=== PATIENT | male | born 1945 | race Caucasian/White ===

== ENCOUNTER → 2017-09-24 | Outpatient (CLI) | payer MEDICARE, BC ==
[~2017-09-24] MED LIST: ALBU90OI6; ALBU90OI61 INH; ASPI81CH PO; ATOR20 PO; ATOR80 PO; B Complex #11 EACH PO; BUDE6HFA; BUME2 PO; CEPH500 PO; CLOP75 PO; ENTRESTO 97 MG1 EACH PO; FISH OIL 1,0001 EAC1 PO; Fish Oil 10001000 MG PO; GABA300 PO; GLUC500 PO; LOSA25 PO; MAGOXI400 PO; MELA3 PO; MELADOX3 MG PO; MOVE FREE JOIN1 EACH PO; MULTI-DAY PLUS1 EAC1 PO; Metoprolol Succ25 MG PO; NITR.4SL SL; OLME20; OLME20-12.; Omeprazole20 M1 PO; POTA10T PO; POTCHL10ER PO; ROSU10TA; SPIR25 PO; Saw Palmetto160 MG PO; Super B Comple150 MG PO; TIOT18; TORSE20 PO; UBID100 PO; XARELTO15 MG
== END ==
LOC: LAB SHORT 15:16
DX: J02.9 Acute pharyngitis, unspecified (principal)
CPT/HCPCS: 87070

== ENCOUNTER 2017-10-30 14:16 | Emergency (ER) | payer MEDICARE, BC ==
[~2017-10-30] VITALS: Ht 193 cm; Wt 98.0 kg
[~2017-10-30 14:16] MED LIST changes: -B Complex #11 EACH PO; -BUME2 PO; -CEPH500 PO; -ENTRESTO 97 MG1 EACH PO; -Fish Oil 10001000 MG PO; -MELA3 PO; -MELADOX3 MG PO; -MOVE FREE JOIN1 EACH PO; -NITR.4SL SL; -POTA10T PO; -POTCHL10ER PO; -XARELTO15 MG
[2017-10-30 14:55] LABS: Hematocrit 35.3 % (37.0-53.0); Hemoglobin 11.9 g/dL (13.5-17.5); Mean Corpuscular HGB 30.4 pg (26.0-34.0); Mean Corpuscular HGB Conc 33.7 g/dL (31.5-36.5); Mean Corpuscular Volume 90 fL (80-100); Mean Platelet Volume 9.5 fL (9.1-12.4); Platelet Count 201 K/mm3 (150-400); RDW Coefficient Variation 15.7 % (11.7-14.2); RDW Standard Deviation 51.4 fL (35.1-46.3); Red Blood Cell Count 3.92 M/mm3 (4.30-5.90); White Blood Cell Count 5.63 K/mm3 (4.00-11.30)
[2017-10-30 15:05] LABS: Anion Gap 9 mmol/L (6-16); Blood Urea Nitrogen 25 mg/dL (8-24); Bun/Creatinine Ratio 22.3 (12.0-20.0); CO2, Blood 25 mmol/L (21-32); Calcium, Blood 8.8 mg/dL (8.5-10.1); Chloride, Blood 105 mmol/L (98-108); Creatinine, Blood 1.12 mg/dL (0.60-1.20); Glomerular Filtration Rate >60 (60-); Glucose, Blood 110 mg/dL (70-99); Potassium, Blood 3.9 mmol/L (3.5-5.5); Sodium, Blood 139 mmol/L (136-145)
[2017-10-30 15:12] LABS: International Normalized Ratio 1.14; Prothrombin Time Results 11.9 Sec (9.7-11.5)
[2017-11-09] MEDS ORDERED: SPIR25 PO (13:50)
[2017-11-09] MEDS ORDERED: Fish Oil 10001000 MG PO (13:51)
[2017-11-09] MEDS ORDERED: MELADOX3 MG PO (13:53)
[2017-11-09] MEDS ORDERED: MELA3 PO (13:54)
[2018-02-10] MEDS ORDERED: ATOR20 PO (14:59)
[2018-02-10] MEDS ORDERED: SPIR25 PO (15:00)
[2018-02-10] MEDS ORDERED: MAGOXI400 PO (15:01)
[2018-02-10] MEDS ORDERED: B Complex #11 EACH PO (15:01)
[2018-02-10] MEDS ORDERED: Saw Palmetto160 MG PO (15:02)
[2018-02-10] MEDS ORDERED: ENTRESTO 97 MG1 EACH PO (15:03)
[2018-02-23] MEDS ORDERED: NITR.4SL SL (00:36)
[2018-03-11] MEDS ORDERED: POTA10T PO (13:01)
[2018-03-11] MEDS ORDERED: MAGOXI400 PO (13:05)
[2018-03-11] MEDS ORDERED: Saw Palmetto160 MG PO (13:06)
[2018-03-11] MEDS ORDERED: MOVE FREE JOIN1 EACH PO ×2 (13:07→13:08)
== END 2017-10-30 15:56 | disposition home or self-care (01) ==
LOC: ER 14:16
PROVIDERS: Emergency Medicine
DX: I77.1 Stricture of artery (principal); I11.0 Hypertensive heart disease with heart failure; I50.9 Heart failure, unspecified; I25.10 Atherosclerotic heart disease of native coronary artery without angina pectoris; E78.5 Hyperlipidemia, unspecified; J44.9 Chronic obstructive pulmonary disease, unspecified; Z87.891 Personal history of nicotine dependence
CPT/HCPCS: 36415; 80048; 85027; 85610; 85730; 93926; 99283; J1644; J7040

== ENCOUNTER 2017-11-01 23:47 | Emergency (ER) | payer MEDICARE, BC ==
[~2017-11-01] VITALS: Ht 193 cm; Wt 90.7 kg
[2017-11-02] MEDS ORDERED: CEPH500 PO (04:25)
[2017-11-09] MEDS ORDERED: SPIR25 PO (13:50)
[2017-11-09] MEDS ORDERED: Fish Oil 10001000 MG PO (13:51)
[2017-11-09] MEDS ORDERED: MELADOX3 MG PO (13:53)
[2017-11-09] MEDS ORDERED: MELA3 PO (13:54)
[2018-02-10] MEDS ORDERED: ATOR20 PO (14:59)
[2018-02-10] MEDS ORDERED: SPIR25 PO (15:00)
[2018-02-10] MEDS ORDERED: B Complex #11 EACH PO (15:01)
[2018-02-10] MEDS ORDERED: MAGOXI400 PO (15:01)
[2018-02-10] MEDS ORDERED: Saw Palmetto160 MG PO (15:02)
[2018-02-10] MEDS ORDERED: ENTRESTO 97 MG1 EACH PO (15:03)
[2018-02-23] MEDS ORDERED: NITR.4SL SL (00:36)
[2018-03-11] MEDS ORDERED: POTA10T PO (13:01)
[2018-03-11] MEDS ORDERED: MAGOXI400 PO (13:05)
[2018-03-11] MEDS ORDERED: Saw Palmetto160 MG PO (13:06)
[2018-03-11] MEDS ORDERED: MOVE FREE JOIN1 EACH PO ×2 (13:07→13:08)
== END 2017-11-02 04:37 | disposition home or self-care (01) ==
LOC: ER 23:47
DX: M79.641 Pain in right hand (principal); Z88.2 Allergy status to sulfonamides; Z79.899 Other long term (current) drug therapy; Z79.82 Long term (current) use of aspirin; Z79.2 Long term (current) use of antibiotics; I10 Essential (primary) hypertension; Z87.891 Personal history of nicotine dependence
CPT/HCPCS: 93931; 99284

== ENCOUNTER 2017-11-10 02:19 | Day surgery (SDC) | payer MEDICARE, BC ==
[~2017-11-10] VITALS: Ht 193 cm; Wt 98.2 kg
[~2017-11-10 02:19] MED LIST changes: +CEPH500 PO; +Fish Oil 10001000 MG PO; +MELA3 PO; +MELADOX3 MG PO
[2017-11-10] MEDS ORDERED: BUME2 PO (06:50)
[2017-11-10] MEDS ORDERED: POTCHL10ER PO (06:51)
[2018-02-10] MEDS ORDERED: ATOR20 PO (14:59)
[2018-02-10] MEDS ORDERED: SPIR25 PO (15:00)
[2018-02-10] MEDS ORDERED: MAGOXI400 PO (15:01)
[2018-02-10] MEDS ORDERED: B Complex #11 EACH PO (15:01)
[2018-02-10] MEDS ORDERED: Saw Palmetto160 MG PO (15:02)
[2018-02-10] MEDS ORDERED: ENTRESTO 97 MG1 EACH PO (15:03)
[2018-02-23] MEDS ORDERED: NITR.4SL SL (00:36)
[2018-03-11] MEDS ORDERED: POTA10T PO (13:01)
[2018-03-11] MEDS ORDERED: MAGOXI400 PO (13:05)
[2018-03-11] MEDS ORDERED: Saw Palmetto160 MG PO (13:06)
[2018-03-11] MEDS ORDERED: MOVE FREE JOIN1 EACH PO ×2 (13:07→13:08)
== END 2017-11-10 15:45 | disposition home or self-care (01) ==
LOC: MHTC 02:19
PROC: 047N3Z1 Dilation of Left Popliteal Artery using Drug-Coated Balloon, Percutaneous Approach (ICD-10-PCS; principal; 2017-11-10)
PROC: 04CN3ZZ Extirpation of Matter from Left Popliteal Artery, Percutaneous Approach (ICD-10-PCS; principal; 2017-11-10)
DX: I70.212 Atherosclerosis of native arteries of extremities with intermittent claudication, left leg (principal); I70.92 Chronic total occlusion of artery of the extremities; I34.0 Nonrheumatic mitral (valve) insufficiency; I10 Essential (primary) hypertension; E78.00 Pure hypercholesterolemia, unspecified; E66.01 Morbid (severe) obesity due to excess calories; J44.9 Chronic obstructive pulmonary disease, unspecified
CPT/HCPCS: 37186; 37225; 75625; 75710; 75774; 85347; 99152; 99153; C1724; C1725; C1757; C1769; C1884; C1887; C1894; C2623; J1644; J2250; J2720; J3010; J7030; J7040; Q9967

== ENCOUNTER 2018-02-11 07:39 | Day surgery (SDC) | payer MEDICARE, BC ==
[~2018-02-11] VITALS: Wt 97.0 kg
[~2018-02-11 07:39] MED LIST changes: +B Complex #11 EACH PO; +BUME2 PO; +ENTRESTO 97 MG1 EACH PO; +POTCHL10ER PO
[2018-02-11] MEDS ORDERED: XARELTO15 MG (11:19)
== END 2018-02-11 16:40 | disposition home or self-care (01) ==
LOC: MHTC 07:39
PROC: 047N3Z1 Dilation of Left Popliteal Artery using Drug-Coated Balloon, Percutaneous Approach (ICD-10-PCS; principal; 2018-02-11)
PROC: 04CN3ZZ Extirpation of Matter from Left Popliteal Artery, Percutaneous Approach (ICD-10-PCS; principal; 2018-02-11)
DX: I70.212 Atherosclerosis of native arteries of extremities with intermittent claudication, left leg (principal); I10 Essential (primary) hypertension; E78.00 Pure hypercholesterolemia, unspecified; I25.10 Atherosclerotic heart disease of native coronary artery without angina pectoris; Z95.1 Presence of aortocoronary bypass graft; E66.01 Morbid (severe) obesity due to excess calories; Z87.891 Personal history of nicotine dependence; I25.5 Ischemic cardiomyopathy; I34.0 Nonrheumatic mitral (valve) insufficiency; E78.5 Hyperlipidemia, unspecified
CPT/HCPCS: 37225; 75710; 75774; 85347; 99152; 99153; C1714; C1725; C1769; C1884; C1887; C2623; J1644; J2250; J2720; J3010; J7030; J7040; Q9967

== ENCOUNTER 2018-02-22 20:34 | Observation (INO) | END 2018-02-24 10:37 | disposition home or self-care (01) ==

== ENCOUNTER 2018-03-14 06:00 | Day surgery (SDC) | payer MEDICARE, BC ==
[~2018-03-14] VITALS: Ht 193 cm; Wt 96.0 kg
[~2018-03-14 06:00] MED LIST changes: +MOVE FREE JOIN1 EACH PO; +NITR.4SL SL; +POTA10T PO; +XARELTO15 MG
== END 2018-03-14 16:00 | disposition home or self-care (01) ==
LOC: MHTC 06:00
PROC: 04CN3ZZ Extirpation of Matter from Left Popliteal Artery, Percutaneous Approach (ICD-10-PCS; principal; 2018-03-14)
PROC: 047N3EZ Dilation of Left Popliteal Artery with Two Intraluminal Devices, Percutaneous Approach (ICD-10-PCS; principal; 2018-03-14)
DX: I70.212 Atherosclerosis of native arteries of extremities with intermittent claudication, left leg (principal); I70.92 Chronic total occlusion of artery of the extremities; I10 Essential (primary) hypertension; E78.00 Pure hypercholesterolemia, unspecified; J44.9 Chronic obstructive pulmonary disease, unspecified; E66.9 Obesity, unspecified; Z87.891 Personal history of nicotine dependence
CPT/HCPCS: 37227; 75710; 75774; 85347; 99152; 99153; C1725; C1769; C1876; C1884; C1885; C1887; C2623; J1644; J2250; J2720; J3010; J7030; J7040; Q9967

== ENCOUNTER → 2019-04-30 | Outpatient (CLI) | payer MEDICARE, BC ==
[~2019-04-30] MED LIST changes: +Aspirin EC81 MG PO; +Bumetanide1 MG PO; +Gabapentin600 MG PO; +Lipitor20 MG PO; +METO50ER PO; +OMEP20ER PO; +PROAIR RESPICL90 MCG INH; +TIOT18 INH; +XARELTO2.5 MG PO
[2019-05-02 13:56] LABS: Stool Occult Bld Immuno 1 Negative (NEGATIVE); Stool Occult Bld Immuno 2 Negative (NEGATIVE)
== END | disposition home or self-care (01) ==
LOC: LAB SHORT 09:00 → LAB SRC 09:00
PROVIDERS: Internal Medicine Gastroenterology
DX: Z12.11 Encounter for screening for malignant neoplasm of colon (principal)
CPT/HCPCS: G0328

== ENCOUNTER 2019-05-10 11:38 | Day surgery (SDC) | payer MEDICARE, BC ==
[~2019-05-10] VITALS: Ht 193 cm; Wt 214.8 kg
[2019-05-10] MEDS ORDERED: BUDE6HFA (12:14)
--- NOTE | 2019-05-10 13:56 | NUR ---
05/10/19 1356 Juany Self LATE ENTRY: FLUIDS WERE GIVEN UNTILL BLOOD PRESSURE RETURNED TO BASELINE PER ANESTHESIA.
== END 2019-05-10 13:56 | disposition home or self-care (01) ==
LOC: ORSCSDS 11:38
PROVIDERS: Internal Medicine Gastroenterology
PROC: 0DB68ZX Excision of Stomach, Via Natural or Artificial Opening Endoscopic, Diagnostic (ICD-10-PCS; principal; 2019-05-10 13:00)
PROC: 0DB58ZX Excision of Esophagus, Via Natural or Artificial Opening Endoscopic, Diagnostic (ICD-10-PCS; principal; 2019-05-10 13:00)
DX: K22.70 Barrett's esophagus without dysplasia (principal); K22.2 Esophageal obstruction; K44.9 Diaphragmatic hernia without obstruction or gangrene; I10 Essential (primary) hypertension; Z79.899 Other long term (current) drug therapy; Z79.01 Long term (current) use of anticoagulants; Z79.82 Long term (current) use of aspirin
CPT/HCPCS: 87081; 88305; 88342; J2704; J7120

== ENCOUNTER → 2019-07-21 | Outpatient (CLI) | payer MEDICARE, BC | END | disposition home or self-care (01) | LOC: LAB EV 10:20 → LAB SHORT 10:20 | DX: L03.116 Cellulitis of left lower limb (principal) | CPT/HCPCS: 87070; 87075; 87205 ==

== ENCOUNTER 2019-07-27 09:48 | Day surgery (SDC) | payer MEDICARE, BC ==
[~2019-07-27] VITALS: Ht 193 cm; Wt 100.0 kg
[~2019-07-27 09:48] MED LIST changes: +BUDE6HFA INH; +POTCHL20ER PO
[2019-07-27] MEDS ORDERED: DOXY100 PO (11:26)
[2019-07-27] MEDS ORDERED: CEFD300 PO (11:26)
--- NOTE | 2019-07-27 14:20 | NUR ---
PT BACK TO RECOVERY ROOM POST PROCEDURE. DROWSY, BUT EASILY ROUSEABLE. DENIES ANY PAIN OR DISCOMFORT. VSS. RIGHT GROIN SITE SOFT AND NON-TENDER. DRESSING C/D/I. CALL LIGHT IN REACH
--- NOTE | 2019-07-27 15:03 | NUR ---
PT SLEEPING, RESP EVEN AND NON-LABORED. VSS. AT BEDSIDE, CALL LIGHT IN REACH.
--- NOTE | 2019-07-27 15:41 | NUR ---
DR FENTON AT BEDSIDE SPEAKING WITH PT AND SPOUSE.
--- NOTE | 2019-07-27 17:00 | NUR ---
IV DC'D, CATH INTACT. PT AND SPOUSE VERBALIZED UNDERSTANDING OF DC INSTRUCTIONS AND FOLLOW UP. RIGHT GROIN SITE SOFT, NON-TENDER. NO BLEEDING OR SWELLING NOTED. PT ABLE TO AMBULATE AROUND THE DEPT WITHOUT DIFFICULTY. OUT TO CAR VIA WC.
== END 2019-07-27 23:22 | disposition home or self-care (01) ==
LOC: MHTC 09:48
DX: I70.212 Atherosclerosis of native arteries of extremities with intermittent claudication, left leg (principal); T82.868A Thrombosis due to vascular prosthetic devices, implants and grafts, initial encounter; Y83.1 Surgical operation with implant of artificial internal device as the cause of abnormal reaction of the patient, or of later complication, without mention of misadventure at the time of the procedure; J44.9 Chronic obstructive pulmonary disease, unspecified; E78.00 Pure hypercholesterolemia, unspecified; I25.5 Ischemic cardiomyopathy; E66.9 Obesity, unspecified; G47.30 Sleep apnea, unspecified; K21.9 Gastro-esophageal reflux disease without esophagitis; Z88.2 Allergy status to sulfonamides; Z87.891 Personal history of nicotine dependence; Z79.01 Long term (current) use of anticoagulants; Z79.02 Long term (current) use of antithrombotics/antiplatelets; Z79.899 Other long term (current) drug therapy; Z79.82 Long term (current) use of aspirin; Z68.26 Body mass index [BMI] 26.0-26.9, adult; Z95.1 Presence of aortocoronary bypass graft
CPT/HCPCS: 37184; 37224; 75630; 75774; 99152; 99153; C1725; C1757; C1760; C1769; C1887; C1894; J1644; J2250; J2997; J3010; J7030; Q9967

== ENCOUNTER 2019-08-14 00:30 | Day surgery (SDC) | payer MEDICARE, BC ==
[~2019-08-14 00:30] MED LIST changes: +CEFD300 PO; +DOXY100 PO
== END 2019-08-14 22:53 | disposition home or self-care (01) ==
LOC: WOUND 00:30
DX: L97.522 Non-pressure chronic ulcer of other part of left foot with fat layer exposed (principal); I11.0 Hypertensive heart disease with heart failure; I50.42 Chronic combined systolic (congestive) and diastolic (congestive) heart failure; J44.9 Chronic obstructive pulmonary disease, unspecified; R73.03 Prediabetes; I73.9 Peripheral vascular disease, unspecified; I25.2 Old myocardial infarction; E78.5 Hyperlipidemia, unspecified; M19.90 Unspecified osteoarthritis, unspecified site; G47.30 Sleep apnea, unspecified; I25.10 Atherosclerotic heart disease of native coronary artery without angina pectoris; Z95.5 Presence of coronary angioplasty implant and graft; Z99.89 Dependence on other enabling machines and devices; Z88.2 Allergy status to sulfonamides; Z79.82 Long term (current) use of aspirin; Z79.899 Other long term (current) drug therapy
CPT/HCPCS: G0463

== ENCOUNTER 2019-08-16 00:21 | Day surgery (SDC) | payer MEDICARE, BC | END 2019-08-16 22:37 | disposition home or self-care (01) | LOC: WOUND 00:21 | DX: L97.522 Non-pressure chronic ulcer of other part of left foot with fat layer exposed (principal); I73.9 Peripheral vascular disease, unspecified; E78.5 Hyperlipidemia, unspecified; I11.0 Hypertensive heart disease with heart failure; I25.2 Old myocardial infarction; I50.42 Chronic combined systolic (congestive) and diastolic (congestive) heart failure; J44.9 Chronic obstructive pulmonary disease, unspecified; G47.30 Sleep apnea, unspecified; R73.03 Prediabetes; Z95.5 Presence of coronary angioplasty implant and graft; Z79.899 Other long term (current) drug therapy; Z79.01 Long term (current) use of anticoagulants; Z79.82 Long term (current) use of aspirin | CPT/HCPCS: Q4196 ==

== ENCOUNTER 2019-08-23 00:15 | Day surgery (SDC) | payer MEDICARE, BC | END 2019-08-23 22:43 | disposition home or self-care (01) | LOC: WOUND 00:15 | DX: L97.522 Non-pressure chronic ulcer of other part of left foot with fat layer exposed (principal); J44.9 Chronic obstructive pulmonary disease, unspecified; G47.30 Sleep apnea, unspecified; I11.0 Hypertensive heart disease with heart failure; I50.42 Chronic combined systolic (congestive) and diastolic (congestive) heart failure; E78.5 Hyperlipidemia, unspecified; I25.2 Old myocardial infarction; I25.10 Atherosclerotic heart disease of native coronary artery without angina pectoris; Z95.5 Presence of coronary angioplasty implant and graft; Z99.89 Dependence on other enabling machines and devices; Z79.02 Long term (current) use of antithrombotics/antiplatelets; Z79.899 Other long term (current) drug therapy | CPT/HCPCS: Q4196 ==

== ENCOUNTER 2019-08-31 12:32 | Day surgery (SDC) | payer MEDICARE, BC | END 2019-08-31 23:05 | disposition home or self-care (01) | LOC: WOUND 12:32 | DX: L97.522 Non-pressure chronic ulcer of other part of left foot with fat layer exposed (principal); I73.9 Peripheral vascular disease, unspecified; I25.2 Old myocardial infarction; I11.0 Hypertensive heart disease with heart failure; I50.42 Chronic combined systolic (congestive) and diastolic (congestive) heart failure; E78.5 Hyperlipidemia, unspecified; J44.9 Chronic obstructive pulmonary disease, unspecified; G47.30 Sleep apnea, unspecified; I25.10 Atherosclerotic heart disease of native coronary artery without angina pectoris; R73.03 Prediabetes; Z95.5 Presence of coronary angioplasty implant and graft; Z99.89 Dependence on other enabling machines and devices; Z79.02 Long term (current) use of antithrombotics/antiplatelets; Z79.899 Other long term (current) drug therapy; Z79.01 Long term (current) use of anticoagulants; Z79.82 Long term (current) use of aspirin ==

== ENCOUNTER 2019-09-07 14:06 | Day surgery (SDC) | payer MEDICARE, BC | END 2019-09-07 22:50 | disposition home or self-care (01) | LOC: WOUND 14:06 | DX: I96 Gangrene, not elsewhere classified (principal); L97.522 Non-pressure chronic ulcer of other part of left foot with fat layer exposed; S91.302A Unspecified open wound, left foot, initial encounter; R73.03 Prediabetes; E78.5 Hyperlipidemia, unspecified; I25.2 Old myocardial infarction; I25.10 Atherosclerotic heart disease of native coronary artery without angina pectoris; I11.0 Hypertensive heart disease with heart failure; I50.42 Chronic combined systolic (congestive) and diastolic (congestive) heart failure; M19.90 Unspecified osteoarthritis, unspecified site; G47.30 Sleep apnea, unspecified; J44.9 Chronic obstructive pulmonary disease, unspecified; Z95.1 Presence of aortocoronary bypass graft; Z95.5 Presence of coronary angioplasty implant and graft; Z99.89 Dependence on other enabling machines and devices; Z88.2 Allergy status to sulfonamides; Z79.01 Long term (current) use of anticoagulants; Z79.02 Long term (current) use of antithrombotics/antiplatelets; Z79.82 Long term (current) use of aspirin; Z79.899 Other long term (current) drug therapy; X58.XXXA Exposure to other specified factors, initial encounter | CPT/HCPCS: 87071; 87075; 87205 ==

== ENCOUNTER 2019-09-14 13:59 | Day surgery (SDC) | payer MEDICARE, BC | END 2019-09-14 23:04 | disposition home or self-care (01) | LOC: WOUND 13:59 | DX: L97.522 Non-pressure chronic ulcer of other part of left foot with fat layer exposed (principal); I11.0 Hypertensive heart disease with heart failure; I50.42 Chronic combined systolic (congestive) and diastolic (congestive) heart failure; I25.10 Atherosclerotic heart disease of native coronary artery without angina pectoris; I25.2 Old myocardial infarction; E78.5 Hyperlipidemia, unspecified; J44.9 Chronic obstructive pulmonary disease, unspecified; G47.30 Sleep apnea, unspecified; R73.03 Prediabetes; Z99.89 Dependence on other enabling machines and devices; Z95.5 Presence of coronary angioplasty implant and graft; Z79.02 Long term (current) use of antithrombotics/antiplatelets; Z79.899 Other long term (current) drug therapy; Z79.01 Long term (current) use of anticoagulants; Z79.82 Long term (current) use of aspirin ==

== ENCOUNTER 2019-09-28 00:24 | Day surgery (SDC) | payer MEDICARE, BC | END 2019-09-28 23:08 | disposition home or self-care (01) | LOC: WOUND 00:24 | DX: L97.522 Non-pressure chronic ulcer of other part of left foot with fat layer exposed (principal); E78.5 Hyperlipidemia, unspecified; J44.9 Chronic obstructive pulmonary disease, unspecified; I11.0 Hypertensive heart disease with heart failure; I50.42 Chronic combined systolic (congestive) and diastolic (congestive) heart failure; G47.30 Sleep apnea, unspecified; I25.2 Old myocardial infarction; R73.03 Prediabetes; I25.10 Atherosclerotic heart disease of native coronary artery without angina pectoris; Z95.5 Presence of coronary angioplasty implant and graft; Z99.89 Dependence on other enabling machines and devices; Z79.899 Other long term (current) drug therapy; Z79.02 Long term (current) use of antithrombotics/antiplatelets; Z79.82 Long term (current) use of aspirin ==

== ENCOUNTER 2019-10-05 08:19 | Day surgery (SDC) | payer MEDICARE, BC | END 2019-10-05 23:11 | disposition home or self-care (01) | LOC: WOUND 08:19 | DX: I96 Gangrene, not elsewhere classified (principal); L97.522 Non-pressure chronic ulcer of other part of left foot with fat layer exposed; S91.302A Unspecified open wound, left foot, initial encounter; R73.03 Prediabetes; E78.5 Hyperlipidemia, unspecified; I11.0 Hypertensive heart disease with heart failure; I50.42 Chronic combined systolic (congestive) and diastolic (congestive) heart failure; J44.9 Chronic obstructive pulmonary disease, unspecified; M19.90 Unspecified osteoarthritis, unspecified site; G47.30 Sleep apnea, unspecified; I25.10 Atherosclerotic heart disease of native coronary artery without angina pectoris; I25.2 Old myocardial infarction; Z95.1 Presence of aortocoronary bypass graft; Z95.5 Presence of coronary angioplasty implant and graft; Z88.2 Allergy status to sulfonamides; Z79.01 Long term (current) use of anticoagulants; Z79.02 Long term (current) use of antithrombotics/antiplatelets; Z79.82 Long term (current) use of aspirin; Z79.899 Other long term (current) drug therapy; X58.XXXA Exposure to other specified factors, initial encounter ==

== ENCOUNTER 2019-10-12 00:42 | Day surgery (SDC) | payer MEDICARE, BC | END 2019-10-12 23:20 | disposition home or self-care (01) | LOC: WOUND 00:42 | DX: L97.522 Non-pressure chronic ulcer of other part of left foot with fat layer exposed (principal); I11.0 Hypertensive heart disease with heart failure; I50.42 Chronic combined systolic (congestive) and diastolic (congestive) heart failure; I25.10 Atherosclerotic heart disease of native coronary artery without angina pectoris; I25.2 Old myocardial infarction; J44.9 Chronic obstructive pulmonary disease, unspecified; G47.30 Sleep apnea, unspecified; E78.5 Hyperlipidemia, unspecified; I73.9 Peripheral vascular disease, unspecified; Z95.5 Presence of coronary angioplasty implant and graft; Z99.89 Dependence on other enabling machines and devices; Z79.899 Other long term (current) drug therapy; Z79.01 Long term (current) use of anticoagulants; Z79.02 Long term (current) use of antithrombotics/antiplatelets; Z79.82 Long term (current) use of aspirin; Z79.51 Long term (current) use of inhaled steroids ==

== ENCOUNTER 2019-10-19 00:15 | Day surgery (SDC) | payer MEDICARE, BC | END 2019-10-19 23:02 | disposition home or self-care (01) | LOC: WOUND 00:15 | DX: L97.522 Non-pressure chronic ulcer of other part of left foot with fat layer exposed (principal); I11.0 Hypertensive heart disease with heart failure; I50.42 Chronic combined systolic (congestive) and diastolic (congestive) heart failure; E78.5 Hyperlipidemia, unspecified; I25.2 Old myocardial infarction; I25.10 Atherosclerotic heart disease of native coronary artery without angina pectoris; J44.9 Chronic obstructive pulmonary disease, unspecified; G47.30 Sleep apnea, unspecified; Z95.5 Presence of coronary angioplasty implant and graft; Z99.89 Dependence on other enabling machines and devices; Z79.899 Other long term (current) drug therapy; Z79.02 Long term (current) use of antithrombotics/antiplatelets; Z79.51 Long term (current) use of inhaled steroids ==

== ENCOUNTER 2019-10-26 00:26 | Day surgery (SDC) | payer MEDICARE, BC | END 2019-10-26 23:59 | disposition home or self-care (01) | LOC: WOUND 00:26 | DX: L97.522 Non-pressure chronic ulcer of other part of left foot with fat layer exposed (principal); I73.9 Peripheral vascular disease, unspecified; E78.5 Hyperlipidemia, unspecified; I11.0 Hypertensive heart disease with heart failure; I50.42 Chronic combined systolic (congestive) and diastolic (congestive) heart failure; J44.9 Chronic obstructive pulmonary disease, unspecified; G47.30 Sleep apnea, unspecified; I25.2 Old myocardial infarction; Z95.5 Presence of coronary angioplasty implant and graft; Z79.899 Other long term (current) drug therapy; Z79.02 Long term (current) use of antithrombotics/antiplatelets; Z79.82 Long term (current) use of aspirin | CPT/HCPCS: Q4196 ==

== ENCOUNTER 2019-11-02 02:22 | Day surgery (SDC) | payer MEDICARE, BC | END 2019-11-02 23:06 | disposition home or self-care (01) | LOC: WOUND 02:22 | DX: L97.522 Non-pressure chronic ulcer of other part of left foot with fat layer exposed (principal); I73.9 Peripheral vascular disease, unspecified; I11.0 Hypertensive heart disease with heart failure; I50.42 Chronic combined systolic (congestive) and diastolic (congestive) heart failure; J44.9 Chronic obstructive pulmonary disease, unspecified; I25.2 Old myocardial infarction; E78.5 Hyperlipidemia, unspecified; Z79.899 Other long term (current) drug therapy; Z79.02 Long term (current) use of antithrombotics/antiplatelets | CPT/HCPCS: G0463 ==

== ENCOUNTER 2019-11-09 00:29 | Day surgery (SDC) | payer MEDICARE, BC | END 2019-11-09 23:06 | disposition home or self-care (01) | LOC: WOUND 00:29 | DX: L97.522 Non-pressure chronic ulcer of other part of left foot with fat layer exposed (principal); I73.9 Peripheral vascular disease, unspecified; J44.9 Chronic obstructive pulmonary disease, unspecified; I11.0 Hypertensive heart disease with heart failure; I50.42 Chronic combined systolic (congestive) and diastolic (congestive) heart failure; E78.5 Hyperlipidemia, unspecified; G47.30 Sleep apnea, unspecified; Z99.89 Dependence on other enabling machines and devices; Z79.02 Long term (current) use of antithrombotics/antiplatelets; Z79.899 Other long term (current) drug therapy; Z79.82 Long term (current) use of aspirin | CPT/HCPCS: Q4196 ==

== ENCOUNTER → 2019-11-16 | Day surgery (SDC) | payer MEDICARE, BC | LOC: WOUND 00:14 | DX: L97.522 Non-pressure chronic ulcer of other part of left foot with fat layer exposed (principal); I73.9 Peripheral vascular disease, unspecified; I11.0 Hypertensive heart disease with heart failure; I50.42 Chronic combined systolic (congestive) and diastolic (congestive) heart failure; J44.9 Chronic obstructive pulmonary disease, unspecified; E78.5 Hyperlipidemia, unspecified; Z79.899 Other long term (current) drug therapy; Z79.02 Long term (current) use of antithrombotics/antiplatelets; Z79.82 Long term (current) use of aspirin | CPT/HCPCS: Q4196 ==

== ENCOUNTER 2019-11-23 00:14 | Day surgery (SDC) | payer MEDICARE, BC | END 2019-11-23 23:00 | disposition home or self-care (01) | LOC: WOUND 00:14 | DX: L97.522 Non-pressure chronic ulcer of other part of left foot with fat layer exposed (principal); I73.9 Peripheral vascular disease, unspecified | CPT/HCPCS: Q4196 ==

== ENCOUNTER 2019-11-30 00:33 | Day surgery (SDC) | payer MEDICARE, BC | END 2019-11-30 23:21 | disposition home or self-care (01) | LOC: WOUND 00:33 | DX: L97.522 Non-pressure chronic ulcer of other part of left foot with fat layer exposed (principal); I73.9 Peripheral vascular disease, unspecified; I11.0 Hypertensive heart disease with heart failure; I50.42 Chronic combined systolic (congestive) and diastolic (congestive) heart failure; I25.2 Old myocardial infarction; J44.9 Chronic obstructive pulmonary disease, unspecified; E78.5 Hyperlipidemia, unspecified; Z79.899 Other long term (current) drug therapy; Z79.02 Long term (current) use of antithrombotics/antiplatelets | CPT/HCPCS: G0463 ==

== ENCOUNTER 2020-04-15 08:53 | Day surgery (SDC) | payer MEDICARE, BC ==
[~2020-04-15] VITALS: Ht 193 cm; Wt 97.6 kg
[~2020-04-15 08:53] MED LIST changes: +NITROGLYCERIN0.4 M1 SL
== END 2020-04-15 10:39 | disposition home or self-care (01) ==
LOC: ORSCSDS 08:53
PROVIDERS: Internal Medicine Gastroenterology
PROC: 0DJD8ZZ Inspection of Lower Intestinal Tract, Via Natural or Artificial Opening Endoscopic (ICD-10-PCS; principal; 2020-04-15 10:30)
DX: Z12.11 Encounter for screening for malignant neoplasm of colon (principal); K57.30 Diverticulosis of large intestine without perforation or abscess without bleeding; J44.9 Chronic obstructive pulmonary disease, unspecified; I25.10 Atherosclerotic heart disease of native coronary artery without angina pectoris; Z87.891 Personal history of nicotine dependence; Z79.01 Long term (current) use of anticoagulants; Z79.899 Other long term (current) drug therapy
CPT/HCPCS: J2704; J7120

== ENCOUNTER → 2020-07-10 | Outpatient (CLI) | payer MEDICARE, BC, OTHER ==
[~2020-07-10] MED LIST changes: -BUDE6HFA INH; +FARXIGA5 MG PO; +Percocet 5-3251 EACH PO; +SYMBICORT 160-4.6 GM INH
== END | disposition home or self-care (01) ==
LOC: OLS 11:03 → LAB SHORT 11:03
DX: Z01.812 Encounter for preprocedural laboratory examination (principal); M17.11 Unilateral primary osteoarthritis, right knee; M25.551 Pain in right hip
CPT/HCPCS: 87147

== ENCOUNTER 2020-07-16 06:39 | Day surgery (SDC) | payer MEDICARE, BC, OTHER ==
[~2020-07-16] VITALS: Ht 193 cm; Wt 92.3 kg
[~2020-07-16 06:39] MED LIST changes: -Percocet 5-3251 EACH PO
--- NOTE | 2020-07-16 07:06 | NUR ---
Ambulatory in Day Surgery. Lungs clear T/O to Auscultation. Lungs clear T/O to Auscultation. Patient confirms NPO status and agrees with scheduled surgery.
--- NOTE | 2020-07-16 11:25 | NUR ---
BLADDER SCAN SHOWS 300 ML AND STRAIGHT CATH GISELE WAS 300 ML PT TOLERATED WITHOUT PROBELM DONE PER PROTOCOL
--- NOTE | 2020-07-16 12:45 | NUR ---
CARMELA PT IS MORE BRADYCARDIAC. MANUAL RADIAL PULSE CHECK AT 37. PT AWAKE, PLEASANT, DENIES SOB, CP, PALPTATIONS, OR DIZZINESS. GOOD CIRC CHECKS. TELE ORDERED AND PLACED. AFIB @ 48 PER TELE TECK. PAGE OUT TO MD FOR NEW ORDERS.
--- NOTE | 2020-07-16 14:00 | NUR ---
EKG EKG COMPLETED AND DR INFORMED OF RESULTS. PT CONTINUES TO BE ASYMPTOMATIC.
--- NOTE | 2020-07-16 17:54 | NUR ---
SHIFT SUMMARY PT HAS HAD SOME ISSUES WITH BRADYCARDIA BUT NO SYMPTOMS OR ISSUES. TELE MONITORING CONTINUES. PAIN WELL MANAGED. WORKED WITH THERAPY BUT NOT ABLE TO AMBULATE IN HALLWAYS DUE TO SOME RESIDUAL NUMBNESS R/T SPINAL.
[2020-07-17 04:33] LABS: BASOPHILS ABSOLUTE AUTO 0.04 K/mm3 (0.00-0.23); BASOPHILS PERCENT AUTO 1 % (0-2); EOSINOPHILS ABSOLUTE AUTO 0.21 K/mm3 (0.00-0.68); EOSINOPHILS PERCENT AUTO 3 % (0-6); Hematocrit 36.1 % (37.0-53.0); IMMATURE GRAN ABSOLUTE AUTO 0.03 K/mm3 (0.00-0.10); IMMATURE GRAN PERCENT AUTO 0 % (0-1); LYMPHOCYTES ABSOLUTE AUTO 1.41 K/mm3 (0.84-5.20); LYMPHOCYTES PERCENT AUTO 19 % (21-46); MONOCYTES ABSOLUTE AUTO 0.72 K/mm3 (0.16-1.47); MONOCYTES PERCENT AUTO 10 % (4-13); Mean Corpuscular HGB Conc 33.2 g/dL (31.5-36.5); Mean Corpuscular Volume 96 fL (80-100); Mean Platelet Volume 10.3 fL (9.1-12.4); NEUTROPHILS ABSOLUTE AUTO 5.13 K/mm3 (1.96-9.15); NEUTROPHILS PERCENT AUTO 68 % (41-73); Platelet Count 173 K/mm3 (150-400); RDW Coefficient Variation 12.7 % (11.7-14.2); RDW Standard Deviation 45.7 fL (35.1-46.3); Red Blood Cell Count 3.75 M/mm3 (4.30-5.90); White Blood Cell Count 7.54 K/mm3 (4.00-11.30)
[2020-07-17 04:49] LABS: Anion Gap 3 mmol/L (6-16); Blood Urea Nitrogen 22 mg/dL (8-24); CO2, Blood 29 mmol/L (21-32); Calcium, Blood 8.2 mg/dL (8.5-10.1); Chloride, Blood 109 mmol/L (98-108); Glomerular Filtration Rate >60 (60-); Glucose, Blood 110 mg/dL (70-99); Potassium, Blood 3.3 mmol/L (3.5-5.5); Sodium, Blood 141 mmol/L (136-145)
--- NOTE | 2020-07-17 04:50 | NUR ---
SHIFT SUMMARY: JAM IS A&OX4. HE IS TOLERATING PO INTAKE WELL. VSS, NO ACUTE CHANGES OVERNIGHT. TELE IN PLACE. AQUACELL WITH BRYAN IN PLACE, NO DRAINAGE VISIBLE. HE HAS BEEN ABLE TO PRODUCE MORE URINCE SINCE RECEIVING HIS NIGHTLY BUMEX. NO DRAINAGE VISIBLE TO BRYAN. HE HAS TOLERATED BEING UP AND WALKING WELL, ONE PERSON STANDBY ASSIST. HE IS LYING N BED WITH HIS CALL LIGHT IN REACH. WILL REPORT TO DAY SHIFT RN.
[2020-07-17] MEDS ORDERED: Percocet 5-3251 EACH PO (09:38)
--- NOTE | 2020-07-17 11:55 | NUR ---
DISCHARGE PT EXCITED FOR D/C. ESCORTED OUT VIA W/C AFTER CLEARING THERAPY W/ AT SIDE. PAIN WELL CONTROLLED. EATING, DRINKING, AND VOIDING EASILY. SCRIPT, DRSGS, POLAR PACK AND EXTRA ALBA HOSE SENT. HR UNCHANGED SINCE ARRIVAL TO THIS UNIT.
== END 2020-07-17 11:54 | disposition home or self-care (01) ==
LOC: ORSCMMR 06:39 → ORD 08:15 → SURS 11:35 → ORSCMMR 07-17 11:54 → SURS 07-17 11:54
PROVIDERS: Orthopaedic Surgery
PROC: 0SRC0JA Replacement of Right Knee Joint with Synthetic Substitute, Uncemented, Open Approach (ICD-10-PCS; principal; 2020-07-16 08:15)
PROC: 8E0Y0CZ Robotic Assisted Procedure of Lower Extremity, Open Approach (ICD-10-PCS; principal; 2020-07-16 08:15)
DX: M17.11 Unilateral primary osteoarthritis, right knee (principal); I10 Essential (primary) hypertension; I50.9 Heart failure, unspecified; J44.9 Chronic obstructive pulmonary disease, unspecified; F17.210 Nicotine dependence, cigarettes, uncomplicated; Z79.899 Other long term (current) drug therapy; Z79.01 Long term (current) use of anticoagulants
CPT/HCPCS: 27447; S2900; 36415; 73560-RT; 80048; 85025; 88300; 93005; 93010; 97116; 97162; 97530; A9270; A9270-GY; C1776; J0171; J0690; J0735; J1885; J2250; J2704; J2795; J3010; J7120

== ENCOUNTER 2020-10-15 08:29 | Day surgery (SDC) | payer MEDICARE, BC ==
[~2020-10-15] VITALS: Ht 193 cm; Wt 88.2 kg
[~2020-10-15 08:29] MED LIST changes: -Gabapentin600 MG PO; +Percocet 5-3251 EACH PO
[2020-10-15] MEDS ORDERED: DICLOFENAC SOD2.5 M1 BOTHEYES (09:45)
--- NOTE | 2020-10-15 13:16 | NUR ---
PT TO RECOVERY ROOM VIA BED AFTER PROCEDURE. REPORT FROM JOLENE JORGE. RIGHT GROIN SITE WITH TEGADERM CHG DRESSING. SITE IS SOFT AND NON-TENDER. PT ALERT, ORIENTED. DENIES PAIN OR DISCOMFORT. VSS.
--- NOTE | 2020-10-15 13:53 | NUR ---
PT EATING LUNCH, DENIES PAIN OR NEEDS. VSS, CALL LIGHT IN REACH.
--- NOTE | 2020-10-15 13:53 | NUR ---
PT PROVIDED WITH MEAL TRAY, TOLERATES PO FLUIDS/FOOD WITH NO DIFFICULTIES. RIGHT GROIN SITE STABLE, CLEAR TEGADERM INTACT, SOFT NON TENDER WITH NO BLEEDING OR OOZING NOTED. CALL LIGHT IN REACH. UPDATED ON STATUS PER PT REQUEST.
--- NOTE | 2020-10-15 15:18 | NUR ---
PT SLEEPING, RESP EVEN AND NON-LABORED. VSS, CALL LIGHT IN REACH. RIGHT GROIN SITE SOFT AND NON-TENDER. NO SWELLING OR BLEEDING NOTED.
--- NOTE | 2020-10-15 16:30 | NUR ---
IV DC'D, CATH INTACT. PT GIVEN DC INSTRUCTIONS, VERBALIZED UNDERSTANDING. RIGHT GROIN SITE SOFT AND NON-TENDER. NO BLEEDING OR SWELLING NOTED. VSS AT TIME OF DISCHARGE. OUT TO CAR VIA WHEELCHAIR.
== END 2020-10-15 16:00 | disposition home or self-care (01) ==
LOC: MHTC 08:29
DX: I70.213 Atherosclerosis of native arteries of extremities with intermittent claudication, bilateral legs (principal); I10 Essential (primary) hypertension; I25.10 Atherosclerotic heart disease of native coronary artery without angina pectoris; J44.9 Chronic obstructive pulmonary disease, unspecified; K21.9 Gastro-esophageal reflux disease without esophagitis; E78.5 Hyperlipidemia, unspecified; Z79.02 Long term (current) use of antithrombotics/antiplatelets; Z79.01 Long term (current) use of anticoagulants; Z79.899 Other long term (current) drug therapy; Z88.2 Allergy status to sulfonamides; Z87.891 Personal history of nicotine dependence
CPT/HCPCS: 37227; 75716; 75774; 99152; 99153; C1714; C1725; C1760; C1769; C1874; C1887; C1894; C2623; J1644; J2250; J3010; J7030; J7050; Q9967

== ENCOUNTER 2021-02-13 09:34 | Day surgery (SDC) | payer MEDICARE, BC ==
[~2021-02-13] VITALS: Ht 187 cm; Wt 93.8 kg
[~2021-02-13 09:34] MED LIST changes: +DICLOFENAC SOD2.5 M1 BOTHEYES
--- NOTE | 2021-02-13 11:46 | NUR ---
Ambulatory in Day Surgery History, Chart, Medications and Allergies reviewed before start of procedure.Patient confirms NPO status and agrees with scheduled surgery. Patient reports completing Chlorhexadine shower X2 prior to admission to hospital.Surgical site prepped with 2% Chlorhexidine cloth wipe.
--- NOTE | 2021-02-13 15:04 | NUR ---
RECIEVED PATIENT INTO STEP VSS DRSSINGS TIMES 2 INTACT. ALERT ORIENTED DENIES PAIN AT FIRST THEN STATES THERE IS A "TWINGE". GIVEN DRINK AT THIS TIME.
--- NOTE | 2021-02-13 15:30 | NUR ---
Discharge instructions reviewed with patient. Patient verbalizes understanding. Copy given to patient to take home. Patient States Post-Procedure ride home has been arranged. Discharged via wheelchair to private car for ride home. WITH ALL BELONGINGS PRESCRIPTION AND DISCHARGE INSTRICTIONS.
== END 2021-02-13 15:37 | disposition home or self-care (01) ==
LOC: ORSCMMR 09:34 → ORD 11:00 → ORSCMMR 11:00
PROVIDERS: Surgery
PROC: 0YU60JZ Supplement Left Inguinal Region with Synthetic Substitute, Open Approach (ICD-10-PCS; principal; 2021-02-13 11:00)
PROC: 0WQF0ZZ Repair Abdominal Wall, Open Approach (ICD-10-PCS; principal; 2021-02-13 11:00)
DX: K40.90 Unilateral inguinal hernia, without obstruction or gangrene, not specified as recurrent (principal); K42.0 Umbilical hernia with obstruction, without gangrene; I10 Essential (primary) hypertension; I25.10 Atherosclerotic heart disease of native coronary artery without angina pectoris; Z87.891 Personal history of nicotine dependence; E11.9 Type 2 diabetes mellitus without complications; K22.70 Barrett's esophagus without dysplasia; Z79.899 Other long term (current) drug therapy; I73.9 Peripheral vascular disease, unspecified; Z79.01 Long term (current) use of anticoagulants
CPT/HCPCS: C1781; J0690; J2704; J3010; J7120

== ENCOUNTER 2022-11-04 06:54 | Day surgery (SDC) | payer MEDICARE, BC ==
[~2022-11-04] VITALS: Ht 193 cm; Wt 93.0 kg
--- NOTE | 2022-11-04 10:00 | NUR ---
PT UP TO THE BATHROOM /C SBA. TOLERATED WELL. -BLEEDING OR SWELLING R GROIN AREA.
--- NOTE | 2022-11-04 11:00 | NUR ---
PT AND VERBALIZED UNDERSTANDING OF WRITTEN AND VERBAL D/C INST. IV REMOVED. PT TAKEN OUT OF THE HRT CENTER VIA W/C.
[2022-11-04] MEDS ORDERED: XARELTO20 MG PO (11:04)
== END 2022-11-04 11:00 | disposition home or self-care (01) ==
LOC: MHTC 06:54
DX: I70.213 Atherosclerosis of native arteries of extremities with intermittent claudication, bilateral legs (principal); E78.5 Hyperlipidemia, unspecified; I25.10 Atherosclerotic heart disease of native coronary artery without angina pectoris; I11.0 Hypertensive heart disease with heart failure; I50.9 Heart failure, unspecified; J44.9 Chronic obstructive pulmonary disease, unspecified; I25.2 Old myocardial infarction; Z88.2 Allergy status to sulfonamides; Z79.02 Long term (current) use of antithrombotics/antiplatelets; Z79.899 Other long term (current) drug therapy; Z79.01 Long term (current) use of anticoagulants
CPT/HCPCS: 76937; 85347; 99152; 99153; C1714; C1725; C1760; C1769; C1887; C1894; C2623; J1644; J2250; J3010; J7030; J7050; Q9967

== ENCOUNTER 2023-07-22 16:21 | Inpatient (IN) | payer MEDICARE, BC ==
[~2023-07-22] VITALS: Ht 193 cm; Wt 93.5 kg
[~2023-07-22 16:21] MED LIST changes: -DULERA 100 MCG/13 GM INH; -GUAI600T33 PO; -LEVO750 PO; -LOW DOSE ASPIRI81 M1 PO; -OXYC5 PO; -PRED20 PO; -TAMSULOSIN HCL0.4 M1 PO
[2023-07-22 16:52] LABS: BASOPHILS ABSOLUTE AUTO 0.08 K/mm3 (0.00-0.23); BASOPHILS PERCENT AUTO 0 % (0-2); EOSINOPHILS ABSOLUTE AUTO 0.09 K/mm3 (0.00-0.68); EOSINOPHILS PERCENT AUTO 0 % (0-6); Hematocrit 32.1 % (37.0-53.0); Hemoglobin 11.2 g/dL (13.5-17.5); IMMATURE GRAN ABSOLUTE AUTO 0.13 K/mm3 (0.00-0.10); IMMATURE GRAN PERCENT AUTO 1 % (0-1); LYMPHOCYTES ABSOLUTE AUTO 0.77 K/mm3 (0.84-5.20); LYMPHOCYTES PERCENT AUTO 4 % (21-46); MONOCYTES ABSOLUTE AUTO 1.31 K/mm3 (0.16-1.47); MONOCYTES PERCENT AUTO 6 % (4-13); Mean Corpuscular HGB 32.8 pg (26.0-34.0); Mean Corpuscular HGB Conc 34.9 g/dL (31.5-36.5); Mean Corpuscular Volume 94 fL (80-100); Mean Platelet Volume 9.5 fL (9.1-12.4); NEUTROPHILS ABSOLUTE AUTO 18.26 K/mm3 (1.96-9.15); NEUTROPHILS PERCENT AUTO 89 % (41-73); Platelet Count 346 K/mm3 (150-400); RDW Coefficient Variation 12.1 % (11.7-14.2); RDW Standard Deviation 42.1 fL (35.1-46.3); Red Blood Cell Count 3.41 M/mm3 (4.30-5.90); White Blood Cell Count 20.64 K/mm3 (4.00-11.30)
[2023-07-22] MEDS ORDERED: OXYC5 PO (17:05)
[2023-07-22 17:17] LABS: Albumin, Blood 2.9 g/dL (3.4-5.0); Albumin/Globulin Ratio 0.8 (0.8-1.8); Bilirubin, Total 0.6 mg/dL (0.1-1.0); Bun/Creatinine Ratio 36.1 (12.0-20.0); Calcium, Blood 8.8 mg/dL (8.5-10.1); Creatinine, Blood 2.27 mg/dL (0.60-1.20); Globulin, Blood 3.6 g/dL (2.2-4.0); Magnesium, Blood 2.2 mg/dL (1.6-2.4); Potassium, Blood 4.8 mmol/L (3.5-5.5); Total Protein, Blood 6.5 g/dL (6.4-8.2)
[2023-07-22 17:23] LABS: Source, Urine Clean Catch
[2023-07-22 17:27] LABS: Appearance, Urine Turbid (Clear); Bilirubin, Urine Neg (Neg); Blood, Urine 5+ (Neg); Color, Urine Yellow (P-Yellow); Glucose Qualitative, Urine Neg (Neg); Ketones, Urine Neg (Neg); Leukocyte Esterase, Urine 3+ (Neg); Nitrite, Urine Neg (Neg); Protein, Urine 3+ (Neg); Specific Gravity, Urine 1.015 (1.003-1.022); Urobilinogen, Urine NORM (Normal)
[2023-07-22 17:50] LABS: Bacteria Many /hpf; Red Blood Cells, Urine TNTC /hpf (0-2); Squamous Epithelial Cells Not Seen /hpf (Few); White Blood Cells, Urine TNTC /hpf (0-5)
[2023-07-22] MEDS ORDERED: TAMSULOSIN HCL0.4 M1 PO (20:19)
[2023-07-22] MEDS ORDERED: LOW DOSE ASPIRI81 M1 PO (20:21)
[2023-07-22 20:34] VITALS: BP 128/66
--- NOTE | 2023-07-22 20:56 | NUR ---
ADMIT NOTE 78 YR OLD MALE ADMITTED TO FLOOR FROM THE ED WITH DX OF SEPSIS DUE TO UTI. ALERT AND OREINTED X 4. ED RN REPORTED PT WAS IN [place] ABOUT 2 WKS AGO AND HAD AN KY, AND HAS HAD CHEST (RIB) PAIN SINCE DUE TO THE CHEST COMPRESSIONS GIVEN AT THAT TIME. NOTE PACE MAKER HAD BEEN RECENTLY PLACED IN LEFT SHOUDER, DRESSING IN PLACE. NOTE DECREASED ROM OF LUE DUE TO SAID OPERATION SITE. LUNG SOUNDS WET, DIMINISHED. INTERMITTENT CONGESTED COUGH. O2 AT 4L/MIN PER NC. ORIENTED TO USE OF CALL LIGHT. CALL LIGHT IN REACH. HOB ELEVAATD. RAILS UP X 2.
[2023-07-23 03:28] VITALS: BP 97/56
--- NOTE | 2023-07-23 03:45 | NUR ---
ACCOUNTANT SYSTEMS SUMMARY VSS. WAS ADMITTED EARLIER WITH DX OF SEPSIS DUE TO UTI. IV ANTIBIOTICS GIVEN. LUNG SOUNDS CONGESTED. O2 AT 4L/MIN PER NC. HOB ELEVATED. INTERMITTENT COUGHING. CONT PULSE OX - 90'S SATS. HAS BEEN RSETING QUIETLY WITH FEW INTERRUPTIONS UNTIL BLOOD DRAWN. AWAKE AT THIS TIME. INCONT, CHANGED. PAIN MEDS WERE EFFECTIVE. NO C/O PAIN AT THIS TIME. CALL LIGHT IN REACH. WILL CONTINUE TO MONITOR
[2023-07-23 06:17] LABS: BASOPHILS ABSOLUTE AUTO 0.06 K/mm3 (0.00-0.23); BASOPHILS PERCENT AUTO 0 % (0-2); EOSINOPHILS ABSOLUTE AUTO 0.22 K/mm3 (0.00-0.68); EOSINOPHILS PERCENT AUTO 2 % (0-6); Hematocrit 28.2 % (37.0-53.0); Hemoglobin 9.7 g/dL (13.5-17.5); IMMATURE GRAN ABSOLUTE AUTO 0.09 K/mm3 (0.00-0.10); IMMATURE GRAN PERCENT AUTO 1 % (0-1); LYMPHOCYTES ABSOLUTE AUTO 0.75 K/mm3 (0.84-5.20); LYMPHOCYTES PERCENT AUTO 5 % (21-46); MONOCYTES ABSOLUTE AUTO 1.19 K/mm3 (0.16-1.47); MONOCYTES PERCENT AUTO 8 % (4-13); Mean Corpuscular HGB 33.2 pg (26.0-34.0); Mean Corpuscular HGB Conc 34.4 g/dL (31.5-36.5); Mean Corpuscular Volume 97 fL (80-100); Mean Platelet Volume 9.6 fL (9.1-12.4); NEUTROPHILS ABSOLUTE AUTO 12.45 K/mm3 (1.96-9.15); NEUTROPHILS PERCENT AUTO 84 % (41-73); Platelet Count 299 K/mm3 (150-400); RDW Coefficient Variation 12.3 % (11.7-14.2); RDW Standard Deviation 43.9 fL (35.1-46.3); Red Blood Cell Count 2.92 M/mm3 (4.30-5.90); White Blood Cell Count 14.76 K/mm3 (4.00-11.30)
[2023-07-23 06:51] LABS: Albumin, Blood 2.4 g/dL (3.4-5.0); Albumin/Globulin Ratio 0.7 (0.8-1.8); Bilirubin, Total 0.5 mg/dL (0.1-1.0); Bun/Creatinine Ratio 35.7 (12.0-20.0); Calcium, Blood 8.1 mg/dL (8.5-10.1); Creatinine, Blood 2.24 mg/dL (0.60-1.20); Globulin, Blood 3.4 g/dL (2.2-4.0); Potassium, Blood 4.6 mmol/L (3.5-5.5); Total Protein, Blood 5.8 g/dL (6.4-8.2)
[2023-07-23 07:26] VITALS: BP 98/56
--- NOTE | 2023-07-23 10:49 | NUR ---
"Spiritual Care | Nurse Request Pt. is genevieve london in a recliner and spouse is present when they welcome my visit. Pt. is pleasant as he and spouse re-tell the story of his health incident on a recent vacation. Both are unsettled that they have not yet seen a doctor. Listen with empathy and a calming presence as I seek to normalize the Pt. experience. In the process rapport is established. Prayed for Pt. Afterward both Pt. and spouse verbalize gratitude for the spiritual care visit."
[2023-07-23 16:27] VITALS: BP 112/55
--- NOTE | 2023-07-23 18:03 | NUR ---
SHIFT SUMMARY PATIENT UP TO CHAIR X1 TODAY. PATIENT ALERT AND IMPULSIVE. OOB WITH ASSISTANCE. PATIENT RE EDUCATED ON SAFETY. PATIENT CONTINUES TO HAVE CHEST PAIN FROM FX RIBS ESPECIALLY WITH COUGHING. PATIENT COUGHING UP THICK SPUTUM. SAMPLE SENT TO LAB. ECHO AND KIDNEY ULTRASOUND DONE THIS AFTERNOON. CASANDRA REMOVED OVER PACER SITE. SITE CLEANSED WITH CHLORHEXIDINE PRIOR TO REMOVING CASANDRA. STERI STRIPS REPLACED AND COVERED WITH DRESSING. FLUTTER AND IS GIVEN TO PATIENT AND INSTRUCTED WITH USE. PATIENT TOLERATING DIET.
[2023-07-23 19:38] VITALS: BP 110/47
[2023-07-24 02:52] VITALS: BP 108/58
--- NOTE | 2023-07-24 04:29 | NUR ---
SHIFT SUMMARY; NO ACUTE CHANGES OVERNIGHT. THE PT IS AOX X3-4, IMPULSIVE AT TIMES. THE PT IS A STANDBY ASSIST TO THE BATHROOM. THE PT IS ON 4L NC PRESENTLY SATING 93-94%. THE PT DESATS TO THE LOW 80'S W/ EXERTION. THE PT HAS BEEN SLEEPING FOR THE MAJORITY OF THE NIGHT. THE PT HAS A SLING IN PLACE ON THE L ARM R/T TO RECENT ICD PACEMAKER PLACEMENT. THE PT ENDORSES SOME CHEST PAIN FROM RECENT CPR A RESULT OF CARDIAC ARREST. THE PT IS INCONTINENT VS. CONTINENT MAKING IT DIFFICULT TO COLLECT A UA. THE PT DENIES ANY SOB OR N/V THIS SHIFT. CURRENTLY THE PT IS SLEEPING IN BED WITH THE BED IN THE LOWEST POSITION AND THE CALL LIGHT AT BEDSIDE. FIRE SAFETY ROUNDS COMPLETED.
[2023-07-24 05:50] LABS: BASOPHILS ABSOLUTE AUTO 0.04 K/mm3 (0.00-0.23); BASOPHILS PERCENT AUTO 0 % (0-2); EOSINOPHILS ABSOLUTE AUTO 0.48 K/mm3 (0.00-0.68); EOSINOPHILS PERCENT AUTO 5 % (0-6); Hematocrit 29.2 % (37.0-53.0); Hemoglobin 9.8 g/dL (13.5-17.5); IMMATURE GRAN ABSOLUTE AUTO 0.05 K/mm3 (0.00-0.10); IMMATURE GRAN PERCENT AUTO 1 % (0-1); LYMPHOCYTES ABSOLUTE AUTO 0.92 K/mm3 (0.84-5.20); LYMPHOCYTES PERCENT AUTO 9 % (21-46); MONOCYTES ABSOLUTE AUTO 1.07 K/mm3 (0.16-1.47); MONOCYTES PERCENT AUTO 11 % (4-13); Mean Corpuscular HGB 32.9 pg (26.0-34.0); Mean Corpuscular HGB Conc 33.6 g/dL (31.5-36.5); Mean Corpuscular Volume 98 fL (80-100); Mean Platelet Volume 9.7 fL (9.1-12.4); NEUTROPHILS ABSOLUTE AUTO 7.51 K/mm3 (1.96-9.15); NEUTROPHILS PERCENT AUTO 75 % (41-73); Platelet Count 351 K/mm3 (150-400); RDW Coefficient Variation 12.4 % (11.7-14.2); RDW Standard Deviation 44.7 fL (35.1-46.3); Red Blood Cell Count 2.98 M/mm3 (4.30-5.90); White Blood Cell Count 10.07 K/mm3 (4.00-11.30)
[2023-07-24 07:29] VITALS: BP 123/63
[2023-07-24 08:24] LABS: Albumin, Blood 2.3 g/dL (3.4-5.0); Albumin/Globulin Ratio 0.6 (0.8-1.8); Bilirubin, Total 0.4 mg/dL (0.1-1.0); Bun/Creatinine Ratio 35.5 (12.0-20.0); Calcium, Blood 8.3 mg/dL (8.5-10.1); Creatinine, Blood 1.97 mg/dL (0.60-1.20); Globulin, Blood 3.6 g/dL (2.2-4.0); Phosphorus, Blood 3.9 mg/dL (2.5-4.9); Potassium, Blood 4.5 mmol/L (3.5-5.5); Total Protein, Blood 5.9 g/dL (6.4-8.2)
[2023-07-24 13:35] LABS: Source, Urine Foley catheter
[2023-07-24 13:44] LABS: Appearance, Urine Cloudy (Clear); Bilirubin, Urine Neg (Neg); Blood, Urine 5+ (Neg); Color, Urine Yellow (P-Yellow); Glucose Qualitative, Urine Neg (Neg); Ketones, Urine Neg (Neg); Leukocyte Esterase, Urine 3+ (Neg); Nitrite, Urine Neg (Neg); Protein, Urine 2+ (Neg); Specific Gravity, Urine 1.015 (1.003-1.022); Urobilinogen, Urine NORM (Normal)
[2023-07-24 14:09] LABS: Bacteria Many /hpf; Red Blood Cells, Urine 25-50 /hpf (0-2); Squamous Epithelial Cells Not Seen /hpf (Few); White Blood Cells, Urine TNTC /hpf (0-5)
[2023-07-24 15:41] VITALS: BP 108/52
--- NOTE | 2023-07-24 17:45 | NUR ---
SHIFT SUMMARY PATIENT CONTINUES TO HAVE CHEST PAIN FROM FX RIBS. PATIENT CONTINUES TO COUGH UP THICK SECRETIONS. PATIENT CONTINUES TO SPLINT WHEN COUGHING. PATIENT AMBULATED OUTSIDE OF ROOM WITH WALKER AND ASSISTANCE. CATHETER PLACED FOR URINARY RETENTION. CATHETER DRAINED OVER 500 AFTER PLACEMENT. UA SENT PER PROTOCOL. PATIENT MEDICATED FOR PAIN PER PROTOCOL.
[2023-07-24 19:34] VITALS: BP 131/55
[2023-07-25 04:06] VITALS: BP 123/63
[2023-07-25 05:53] LABS: BASOPHILS ABSOLUTE AUTO 0.03 K/mm3 (0.00-0.23); BASOPHILS PERCENT AUTO 0 % (0-2); EOSINOPHILS ABSOLUTE AUTO 0.34 K/mm3 (0.00-0.68); EOSINOPHILS PERCENT AUTO 4 % (0-6); Hematocrit 30.5 % (37.0-53.0); IMMATURE GRAN ABSOLUTE AUTO 0.07 K/mm3 (0.00-0.10); IMMATURE GRAN PERCENT AUTO 1 % (0-1); LYMPHOCYTES ABSOLUTE AUTO 0.93 K/mm3 (0.84-5.20); LYMPHOCYTES PERCENT AUTO 10 % (21-46); MONOCYTES ABSOLUTE AUTO 0.95 K/mm3 (0.16-1.47); MONOCYTES PERCENT AUTO 11 % (4-13); Mean Corpuscular HGB 32.2 pg (26.0-34.0); Mean Corpuscular HGB Conc 32.8 g/dL (31.5-36.5); Mean Corpuscular Volume 98 fL (80-100); Mean Platelet Volume 9.3 fL (9.1-12.4); NEUTROPHILS ABSOLUTE AUTO 6.65 K/mm3 (1.96-9.15); NEUTROPHILS PERCENT AUTO 74 % (41-73); Platelet Count 390 K/mm3 (150-400); RDW Coefficient Variation 12.3 % (11.7-14.2); RDW Standard Deviation 44.4 fL (35.1-46.3); Red Blood Cell Count 3.11 M/mm3 (4.30-5.90); White Blood Cell Count 8.97 K/mm3 (4.00-11.30)
[2023-07-25 06:17] LABS: Albumin, Blood 2.4 g/dL (3.4-5.0); Albumin/Globulin Ratio 0.6 (0.8-1.8); Bilirubin, Total 0.3 mg/dL (0.1-1.0); Bun/Creatinine Ratio 28.9 (12.0-20.0); Calcium, Blood 7.7 mg/dL (8.5-10.1); Creatinine, Blood 1.49 mg/dL (0.60-1.20); Globulin, Blood 3.9 g/dL (2.2-4.0); Potassium, Blood 4.4 mmol/L (3.5-5.5); Total Protein, Blood 6.3 g/dL (6.4-8.2)
[2023-07-25 07:37] VITALS: BP 126/73
[2023-07-25 15:33] VITALS: BP 117/59
--- NOTE | 2023-07-25 18:42 | NUR ---
SHIFT SUMMARY MR FUENTES HAS SAT UP IN THE CHAIR FOR MUCH OF THE DAY. HE WALKED IN THE HALLWAY WITH 1 PERSON ASSISTANCE. HE DOES WELL THEN CAN BE UNSTEADY AT TIMES. IVF AND IV ABX CONTINUE. ON OXYGEN 2-4L NC ON CONTINUOUS PULSE OX. USING I.S. UP TO 1500ML WITH GOOD TECHNIQUE AND DOING FLUTTER VALVE. GOMEZ REMAINS IN PLACE. PAIN TO MID CHEST CONTROLLED WITH MEDICATIONS. PT SPLINTING WITH BLANKET WHEN HE COUGHS AND DEEPS BREATHES. BED LOW, CALL LIGHT IN REACH.
[2023-07-25 19:21] VITALS: BP 137/67
[2023-07-26 03:59] VITALS: BP 142/73
--- NOTE | 2023-07-26 04:11 | NUR ---
SHIFT SUMMARY; NO ACUTE CHANGES OVERNIGHT. THE PT IS AXO X3-4 AND A STANDBY ASSIST. THE PT HAS BEEN RESTING IN BED FOR THE DURATION OF THE NIGHT. THE PT IS ON 3L NC SATING 92-94%. THE PT HAS A GOMEZ IN PLACE, IT IS PATNET AND DRAINING TO GRAVITY. THE PT HAS HAD SOME PAIN IN HIS CHEST R/T RECENT CRADIAC ARREST RESULTING IN CPR. THE PT ALSO HAD AN AICD PACEMAKER PLACED. THE PT ONLY ENDORSES PAIN IN HIS CHEST WHEN HE IS COUGHING. THE PT DENIES ANY SOB OR N/V. CURRENTLY THE PT IS SLEEPING IN BED WITH THE BED IN THE LOWEST POSITION AND THE CALL LIGHT AT BEDSIDE. FIRE SAFETY CHECKS COMPLETED T/O THE NIGHT.
[2023-07-26 05:13] LABS: BASOPHILS ABSOLUTE AUTO 0.02 K/mm3 (0.00-0.23); BASOPHILS PERCENT AUTO 0 % (0-2); EOSINOPHILS ABSOLUTE AUTO 0.01 K/mm3 (0.00-0.68); EOSINOPHILS PERCENT AUTO 0 % (0-6); Hematocrit 31.6 % (37.0-53.0); Hemoglobin 10.6 g/dL (13.5-17.5); IMMATURE GRAN ABSOLUTE AUTO 0.09 K/mm3 (0.00-0.10); IMMATURE GRAN PERCENT AUTO 1 % (0-1); LYMPHOCYTES ABSOLUTE AUTO 0.52 K/mm3 (0.84-5.20); LYMPHOCYTES PERCENT AUTO 7 % (21-46); MONOCYTES ABSOLUTE AUTO 0.45 K/mm3 (0.16-1.47); MONOCYTES PERCENT AUTO 6 % (4-13); Mean Corpuscular HGB 32.6 pg (26.0-34.0); Mean Corpuscular HGB Conc 33.5 g/dL (31.5-36.5); Mean Corpuscular Volume 97 fL (80-100); Mean Platelet Volume 9.3 fL (9.1-12.4); NEUTROPHILS ABSOLUTE AUTO 6.19 K/mm3 (1.96-9.15); NEUTROPHILS PERCENT AUTO 85 % (41-73); Platelet Count 333 K/mm3 (150-400); RDW Coefficient Variation 11.9 % (11.7-14.2); RDW Standard Deviation 42.6 fL (35.1-46.3); Red Blood Cell Count 3.25 M/mm3 (4.30-5.90); White Blood Cell Count 7.28 K/mm3 (4.00-11.30)
[2023-07-26 05:52] LABS: Bun/Creatinine Ratio 21.7 (12.0-20.0); Calcium, Blood 8.4 mg/dL (8.5-10.1); Creatinine, Blood 1.06 mg/dL (0.60-1.20); Potassium, Blood 5.2 mmol/L (3.5-5.5)
[2023-07-26 07:23] VITALS: BP 140/70
[2023-07-26 15:28] VITALS: BP 143/67
--- NOTE | 2023-07-26 17:56 | NUR ---
SHIFT SUMMARY GOMEZ REMOVED PER ORDERS FOR URINE TRIAL, BLADDER SCAN PRN, AWAITING PT VOID. NO OTHER ACUTE CHANGES THIS SHIFT. CALL LIGHT WITHIN REACH AND PT ABLE TO MAKE NEEDS KNOWN.
--- NOTE | 2023-07-26 18:43 | NUR ---
SHIFT SUMMARY GOMEZ REMOVED THIS AFTERNOON FOR URINE TRIAL PER DR. WATERMAN. PT UNABLE TO VOID AND BLADDER SCANNED PT, RETAINED 973ML. NOTIFIED AND GOMEZ PLACED PER ORDERS. NO OTHER ACUTE CHANGES THIS SHIFT. CALL LIGHT WITHIN REACH AND PT ABLE TO MAKE NEEDS KNOWN.
[2023-07-26 19:41] VITALS: BP 143/75
[2023-07-27 02:55] VITALS: BP 155/80
--- NOTE | 2023-07-27 04:51 | NUR ---
SHIFT SUMMARY ADMITTED FOR SEPSIS/UTI/PNEUMONIA. FULL CODE. IV ANTIB RX ARE SCHEDULED. FLUIDS INFUSING ORDERED. PACEMAKER IN PLACE (PLACED 07/13/23). LEFT ARM SLING IN PLACE TO PREVENT ARM MOVEMENT DUE TO RECENT PACER PLACEMENT. HE IS ON XARELTO. HE HAS A COARSE FREQUENT COUGH. RT TX'S ARE SCHEDULED. HE DOES HAVE COPD. HE IS A STANDBY ASSIST W/BRP. HE IS A&O X4. 3-4 LPM O2 SINCE HIS RECENT NE. HE DOES HAVE PLEURAL PAIN FROM FREQUENT COUGHING.
[2023-07-27 05:45] LABS: BASOPHILS ABSOLUTE AUTO 0.01 K/mm3 (0.00-0.23); BASOPHILS PERCENT AUTO 0 % (0-2); EOSINOPHILS ABSOLUTE AUTO 0.01 K/mm3 (0.00-0.68); EOSINOPHILS PERCENT AUTO 0 % (0-6); Hematocrit 28.4 % (37.0-53.0); Hemoglobin 9.6 g/dL (13.5-17.5); IMMATURE GRAN ABSOLUTE AUTO 0.09 K/mm3 (0.00-0.10); IMMATURE GRAN PERCENT AUTO 1 % (0-1); LYMPHOCYTES ABSOLUTE AUTO 0.76 K/mm3 (0.84-5.20); LYMPHOCYTES PERCENT AUTO 8 % (21-46); MONOCYTES ABSOLUTE AUTO 0.73 K/mm3 (0.16-1.47); MONOCYTES PERCENT AUTO 8 % (4-13); Mean Corpuscular HGB 32.7 pg (26.0-34.0); Mean Corpuscular HGB Conc 33.8 g/dL (31.5-36.5); Mean Corpuscular Volume 97 fL (80-100); Mean Platelet Volume 9.2 fL (9.1-12.4); NEUTROPHILS ABSOLUTE AUTO 7.56 K/mm3 (1.96-9.15); NEUTROPHILS PERCENT AUTO 83 % (41-73); Platelet Count 420 K/mm3 (150-400); RDW Coefficient Variation 12.1 % (11.7-14.2); RDW Standard Deviation 42.7 fL (35.1-46.3); Red Blood Cell Count 2.94 M/mm3 (4.30-5.90); White Blood Cell Count 9.16 K/mm3 (4.00-11.30)
[2023-07-27 06:33] LABS: Bun/Creatinine Ratio 26.5 (12.0-20.0); Calcium, Blood 8.6 mg/dL (8.5-10.1); Creatinine, Blood 1.02 mg/dL (0.60-1.20); Potassium, Blood 4.9 mmol/L (3.5-5.5)
[2023-07-27 07:30] VITALS: BP 133/72
[2023-07-27 09:19] LABS: Vancomycin, Trough 8.4 ug/mL (5.0-10.0)
[2023-07-27 14:51] VITALS: BP 127/92
--- NOTE | 2023-07-27 18:50 | NUR ---
SHIFT SUMMARY PT A&OX4 AND PLEASANT. PT WORKED WITH PHYSICAL THERAPY AND OT. PT TOLERATED WELL AND WAS ABLE TO AMBULATE IN [facility]. RT CONSULTED ON PT AND REPORTED THAT PT WOULD NEED TO GO HOME WITH 3L OF OXYGEN. NO ACUTE CHANGES. ABLE TO MAKE NEEDS KNOWN. VSS. PT UP IN CHAIR WITH CALL LIGHT IN REACH.
[2023-07-27 19:36] VITALS: BP 152/76
--- NOTE | 2023-07-28 03:52 | NUR ---
SHIFT SUMMARY ADMITTED FOR UTI/SEPSIS/PNEUMONIA. FULL CODE. PLAN FOR PO ANTIB RX. HOPEFUL DC TODAY WITH GOMEZ. HE WILL SEE UROLOGY OUTPT FOR RETENTION. . HE WILL DC WITH 3 LPM O2, HOME O2 EVAL COMPLETED ON PREVIOUS SHIFT. NS INFUSING ORDERED. HE IS ON XARELTO. RECENT HX OF ND AND PACEMAKER.
[2023-07-28 04:30] VITALS: BP 149/81
[2023-07-28 05:04] LABS: BASOPHILS ABSOLUTE AUTO 0.01 K/mm3 (0.00-0.23); BASOPHILS PERCENT AUTO 0 % (0-2); EOSINOPHILS ABSOLUTE AUTO 0.01 K/mm3 (0.00-0.68); EOSINOPHILS PERCENT AUTO 0 % (0-6); Hemoglobin 10.1 g/dL (13.5-17.5); IMMATURE GRAN ABSOLUTE AUTO 0.09 K/mm3 (0.00-0.10); IMMATURE GRAN PERCENT AUTO 1 % (0-1); LYMPHOCYTES ABSOLUTE AUTO 1.29 K/mm3 (0.84-5.20); LYMPHOCYTES PERCENT AUTO 11 % (21-46); MONOCYTES ABSOLUTE AUTO 0.87 K/mm3 (0.16-1.47); MONOCYTES PERCENT AUTO 8 % (4-13); Mean Corpuscular HGB 32.5 pg (26.0-34.0); Mean Corpuscular HGB Conc 33.7 g/dL (31.5-36.5); Mean Corpuscular Volume 97 fL (80-100); Mean Platelet Volume 9.1 fL (9.1-12.4); NEUTROPHILS ABSOLUTE AUTO 9.09 K/mm3 (1.96-9.15); NEUTROPHILS PERCENT AUTO 80 % (41-73); Platelet Count 437 K/mm3 (150-400); RDW Coefficient Variation 11.9 % (11.7-14.2); RDW Standard Deviation 42.2 fL (35.1-46.3); Red Blood Cell Count 3.11 M/mm3 (4.30-5.90); White Blood Cell Count 11.36 K/mm3 (4.00-11.30)
[2023-07-28 05:27] LABS: Bun/Creatinine Ratio 25.9 (12.0-20.0); Calcium, Blood 8.4 mg/dL (8.5-10.1); Creatinine, Blood 1.08 mg/dL (0.60-1.20); Potassium, Blood 4.3 mmol/L (3.5-5.5)
[2023-07-28 07:25] VITALS: BP 137/74
[2023-07-28] MEDS ORDERED: LEVO750 PO (10:54)
[2023-07-28] MEDS ORDERED: DULERA 100 MCG/13 GM INH (10:55)
[2023-07-28] MEDS ORDERED: PRED20 PO (10:57)
[2023-07-28] MEDS ORDERED: GUAI600T33 PO (10:58)
--- NOTE | 2023-07-28 17:49 | NUR ---
PT DISCHARGED HOME. DC INSTRUCTIONS AND EDUCATION MATERIAL EXPLAINED TO PT. PT SENT HOME WITH [facility]. CARE INSTRUCTIONS AND HOW TO EMPTY BAG EXPLAINED TO PT AND . PT TO FOLLOW UP WITH UROLOGY OUTPATIENT. [facility] DELIVERED OXYGEN FOR TRANSPORTATION HOME. NO NEW QUESTIONS OR CONCERNS. IV DC'D. ALL BELONGINGS SENT HOME WITH PT. MEDICATIONS FAXED TO [facility]. PT TAKEN BY WHEELCHAIR TO WAITING VEHICLE.
== END 2023-07-28 13:15 | disposition home or self-care (01) | DRG 871 ==
LOC: ER 16:21 → MEDS 18:45
PROVIDERS: Family Medicine; Hospitalist; Nurse Practitioner Acute Care; Physician Assistant; ADMIT Student in an Organized Health Care Education/Training Program
PROC: 3E03329 Introduction of Other Anti-infective into Peripheral Vein, Percutaneous Approach (ICD-10-PCS; principal; 2023-07-22)
PROC: B24BZZZ Ultrasonography of Heart with Aorta (ICD-10-PCS; 2023-07-23)
DX: A41.51 Sepsis due to Escherichia coli [E. coli] (principal); G93.41 Metabolic encephalopathy; J15.1 Pneumonia due to Pseudomonas; J15.5 Pneumonia due to Escherichia coli; J15.8 Pneumonia due to other specified bacteria; N17.9 Acute kidney failure, unspecified; I50.22 Chronic systolic (congestive) heart failure; N13.6 Pyonephrosis; J96.11 Chronic respiratory failure with hypoxia; M96.A3 Multiple fractures of ribs associated with chest compression and cardiopulmonary resuscitation; J44.0 Chronic obstructive pulmonary disease with (acute) lower respiratory infection; G93.40 Encephalopathy, unspecified; Y95 Nosocomial condition; R33.9 Retention of urine, unspecified; I25.10 Atherosclerotic heart disease of native coronary artery without angina pectoris; I73.9 Peripheral vascular disease, unspecified; I11.0 Hypertensive heart disease with heart failure; K21.9 Gastro-esophageal reflux disease without esophagitis; E86.1 Hypovolemia; E78.5 Hyperlipidemia, unspecified; K59.00 Constipation, unspecified; Z95.1 Presence of aortocoronary bypass graft; Z95.5 Presence of coronary angioplasty implant and graft; Z79.01 Long term (current) use of anticoagulants; Z86.74 Personal history of sudden cardiac arrest; Z95.810 Presence of automatic (implantable) cardiac defibrillator; Z88.2 Allergy status to sulfonamides; Z79.02 Long term (current) use of antithrombotics/antiplatelets; Z90.49 Acquired absence of other specified parts of digestive tract
CPT/HCPCS: 36415; 51798; 71046; 76770; 80048; 80053; 80202; 81001; 81015; 82436; 83605; 83735; 83880; 84100; 84145; 84300; 84484; 85025; 87040; 87070; 87077; 87086; 87186; 87205; 93005; 93010; 93306; 94640; 94664; 94761; 94762; 96361; 96365; 97110; 97116; 97162; 97166; 97530; 99284-25; A9270; J0456; J0692; J0696; J1956; J2270; J3010; J3370; J7030; J7050; J7512

== ENCOUNTER → 2023-07-22 | Outpatient (CLI) | payer MEDICARE, BC ==
[~2023-07-22] MED LIST changes: +ATOR40TA PO; +DULERA 100 MCG/13 GM INH; +GUAI600T33 PO; +LEVO750 PO; +LOW DOSE ASPIRI81 M1 PO; -Lipitor20 MG PO; +OXYC5 PO; +PRED20 PO; +TAMSULOSIN HCL0.4 M1 PO; +XARELTO20 MG PO
[2023-07-22 16:58] LABS: Source, Urine Voided
[2023-07-22 18:21] LABS: Bacteria Many /hpf; Red Blood Cells, Urine TNTC /hpf (0-2); White Blood Cells, Urine TNTC /hpf (0-5)
[2023-07-22 18:22] LABS: Squamous Epithelial Cells Few /hpf (Few)
[2023-07-22 18:23] LABS: Hyaline Casts 0-2 /lpf (0-2); Transitional Epithelial Cells Rare /hpf (0-Rare); WBC Cast 0-2 /lpf (0)
== END | disposition home or self-care (01) ==
LOC: LAB 16:54 → LAB SHORT 16:54
PROVIDERS: Family Medicine
DX: R30.0 Dysuria (principal)
CPT/HCPCS: 81015; 87077; 87086; 87186

== ENCOUNTER → 2023-09-11 | Outpatient (CLI) | payer MEDICARE, BC ==
[~2023-09-11] MED LIST changes: +DULERA 100 MCG/13 GM INH; +GUAI600T33 PO; +LEVO750 PO; +LOW DOSE ASPIRI81 M1 PO; +OXYC5 PO; +PRED20 PO; +TAMSULOSIN HCL0.4 M1 PO
== END ==
LOC: LAB SHORT 10:43 → LAB 10:43
DX: N39.0 Urinary tract infection, site not specified (principal)
CPT/HCPCS: 87077; 87086; 87186

== ENCOUNTER 2024-04-11 15:05 | Emergency (ER) | payer MEDICARE, BC ==
[~2024-04-11] VITALS: Ht 193 cm; Wt 89.4 kg
[2024-04-11] MEDS ORDERED: Lactated Ringer's 1,000 ML IV ONE (15:25)
[2024-04-11 15:39] LABS: BASOPHILS ABSOLUTE AUTO 0.03 K/mm3 (0.00-0.23); BASOPHILS PERCENT AUTO 0 % (0-2); EOSINOPHILS ABSOLUTE AUTO 0.04 K/mm3 (0.00-0.68); EOSINOPHILS PERCENT AUTO 1 % (0-6); Hemoglobin 13.6 g/dL (13.5-17.5); IMMATURE GRAN ABSOLUTE AUTO 0.03 K/mm3 (0.00-0.10); IMMATURE GRAN PERCENT AUTO 0 % (0-1); LYMPHOCYTES ABSOLUTE AUTO 1.09 K/mm3 (0.84-5.20); LYMPHOCYTES PERCENT AUTO 14 % (21-46); MONOCYTES ABSOLUTE AUTO 0.59 K/mm3 (0.16-1.47); MONOCYTES PERCENT AUTO 7 % (4-13); Mean Corpuscular HGB 34.3 pg (26.0-34.0); Mean Corpuscular HGB Conc 34.9 g/dL (31.5-36.5); Mean Corpuscular Volume 98 fL (80-100); Mean Platelet Volume 9.7 fL (9.1-12.4); NEUTROPHILS ABSOLUTE AUTO 6.21 K/mm3 (1.96-9.15); NEUTROPHILS PERCENT AUTO 78 % (41-73); Platelet Count 194 K/mm3 (150-400); RDW Coefficient Variation 13.4 % (11.7-14.2); RDW Standard Deviation 48.9 fL (35.1-46.3); Red Blood Cell Count 3.97 M/mm3 (4.30-5.90); White Blood Cell Count 7.99 K/mm3 (4.00-11.30)
[2024-04-11 15:58] LABS: Albumin, Blood 3.7 g/dL (3.4-5.0); Albumin/Globulin Ratio 1.2 (0.8-1.8); Bilirubin, Total 0.9 mg/dL (0.1-1.0); Bun/Creatinine Ratio 21.2 (12.0-20.0); Calcium, Blood 8.8 mg/dL (8.5-10.1); Creatinine, Blood 1.04 mg/dL (0.60-1.20); Globulin, Blood 3.2 g/dL (2.2-4.0); Potassium, Blood 4.1 mmol/L (3.5-5.5); Total Protein, Blood 6.9 g/dL (6.4-8.2)
[2024-04-11 19:00] VITALS: BP 112/62
== END 2024-04-11 20:22 | disposition home or self-care (01) ==
LOC: ER 15:05
PROVIDERS: Physician Assistant
DX: R42 Dizziness and giddiness (principal); R11.0 Nausea; I25.2 Old myocardial infarction; I11.0 Hypertensive heart disease with heart failure; I50.9 Heart failure, unspecified; J90 Pleural effusion, not elsewhere classified; J44.9 Chronic obstructive pulmonary disease, unspecified; Z88.2 Allergy status to sulfonamides; Z79.82 Long term (current) use of aspirin; Z95.810 Presence of automatic (implantable) cardiac defibrillator; Z95.1 Presence of aortocoronary bypass graft
CPT/HCPCS: 71046; 80053; 83735; 83880; 84484; 85025; 93005; 93010; 96360; 96361; 99285-25; J7120

== ENCOUNTER → 2025-01-29 | Outpatient (CLI) | payer MEDICARE, BC ==
[~2025-01-29] MED LIST changes: +Amiodarone HCl200 MG PO; +ENTRESTO 49 MG1 EACH PO; +EPLERENONE25 M2 PO
[2025-01-30 12:36] LABS: Stool Occult Bld Immuno 1 Positive (NEGATIVE); Stool Occult Bld Immuno 2 Positive (NEGATIVE)
== END ==
LOC: LAB 19:55 → LAB SHORT 19:55
PROVIDERS: Nurse Practitioner Family
DX: R19.4 Change in bowel habit (principal)
CPT/HCPCS: 82274

== ENCOUNTER 2025-08-07 09:36 | Day surgery (SDC) | payer MEDICARE, BC ==
[~2025-08-07 09:36] MED LIST changes: +Lidocaine HCl 4% Cream 5 GM ONE
== END 2025-08-07 22:46 | disposition home or self-care (01) ==
LOC: WOUND 09:36
DX: L89.893 Pressure ulcer of other site, stage 3 (principal); L97.312 Non-pressure chronic ulcer of right ankle with fat layer exposed; L97.522 Non-pressure chronic ulcer of other part of left foot with fat layer exposed; I73.9 Peripheral vascular disease, unspecified; I87.2 Venous insufficiency (chronic) (peripheral); I11.0 Hypertensive heart disease with heart failure; I50.42 Chronic combined systolic (congestive) and diastolic (congestive) heart failure; I25.2 Old myocardial infarction; I25.10 Atherosclerotic heart disease of native coronary artery without angina pectoris; J44.9 Chronic obstructive pulmonary disease, unspecified; E78.5 Hyperlipidemia, unspecified; G47.30 Sleep apnea, unspecified; R73.03 Prediabetes; Z95.1 Presence of aortocoronary bypass graft; Z88.2 Allergy status to sulfonamides
CPT/HCPCS: A6213; A9270; G0463

== ENCOUNTER 2025-08-13 00:50 | Day surgery (SDC) | payer MEDICARE, BC ==
[~2025-08-13 00:50] MED LIST changes: -Lidocaine HCl 4% Cream 5 GM ONE
[2025-08-13] MEDS ORDERED: Lidocaine HCl 4% Cream 5 GM ONE (10:02)
== END 2025-08-13 22:00 | disposition home or self-care (01) ==
LOC: WOUND 00:50
DX: L97.312 Non-pressure chronic ulcer of right ankle with fat layer exposed (principal); L89.893 Pressure ulcer of other site, stage 3; E78.5 Hyperlipidemia, unspecified; I25.10 Atherosclerotic heart disease of native coronary artery without angina pectoris; I73.9 Peripheral vascular disease, unspecified; I11.0 Hypertensive heart disease with heart failure; I50.42 Chronic combined systolic (congestive) and diastolic (congestive) heart failure; Z45.02 Encounter for adjustment and management of automatic implantable cardiac defibrillator
CPT/HCPCS: 93283; A6213; A9270

== ENCOUNTER 2025-08-21 01:32 | Day surgery (SDC) | payer MEDICARE, BC ==
[2025-08-21] MEDS ORDERED: Lidocaine HCl 4% Cream 5 GM ONE (11:28)
== END 2025-08-21 22:00 | disposition home or self-care (01) ==
LOC: WOUND 01:32
DX: L97.312 Non-pressure chronic ulcer of right ankle with fat layer exposed (principal); S91.001A Unspecified open wound, right ankle, initial encounter; X58.XXXA Exposure to other specified factors, initial encounter; L89.893 Pressure ulcer of other site, stage 3; I73.9 Peripheral vascular disease, unspecified; I87.2 Venous insufficiency (chronic) (peripheral); E78.5 Hyperlipidemia, unspecified; I25.10 Atherosclerotic heart disease of native coronary artery without angina pectoris; I25.2 Old myocardial infarction; I11.0 Hypertensive heart disease with heart failure; I50.42 Chronic combined systolic (congestive) and diastolic (congestive) heart failure; J44.9 Chronic obstructive pulmonary disease, unspecified; M19.90 Unspecified osteoarthritis, unspecified site; G47.30 Sleep apnea, unspecified; Z95.5 Presence of coronary angioplasty implant and graft
CPT/HCPCS: A6213; A9270

== ENCOUNTER 2025-08-28 02:33 | Day surgery (SDC) | payer MEDICARE, BC ==
[2025-08-28] MEDS ORDERED: Lidocaine HCl 4% Cream 5 GM ONE (11:25)
== END 2025-08-28 23:27 | disposition home or self-care (01) ==
LOC: WOUND 02:33
DX: L97.312 Non-pressure chronic ulcer of right ankle with fat layer exposed (principal); L89.893 Pressure ulcer of other site, stage 3; L89.892 Pressure ulcer of other site, stage 2; I25.10 Atherosclerotic heart disease of native coronary artery without angina pectoris; I73.9 Peripheral vascular disease, unspecified; I87.2 Venous insufficiency (chronic) (peripheral); E78.5 Hyperlipidemia, unspecified; I50.42 Chronic combined systolic (congestive) and diastolic (congestive) heart failure; I11.0 Hypertensive heart disease with heart failure
CPT/HCPCS: A6213; A9270

== ENCOUNTER 2025-09-04 02:29 | Day surgery (SDC) | payer MEDICARE, BC ==
[2025-09-04] MEDS ORDERED: Lidocaine HCl 4% Cream 5 GM ONE (11:14)
== END 2025-09-04 23:21 | disposition home or self-care (01) ==
LOC: WOUND 02:29
DX: L97.315 Non-pressure chronic ulcer of right ankle with muscle involvement without evidence of necrosis (principal); L89.893 Pressure ulcer of other site, stage 3; L89.892 Pressure ulcer of other site, stage 2; I87.2 Venous insufficiency (chronic) (peripheral); I25.10 Atherosclerotic heart disease of native coronary artery without angina pectoris; I25.2 Old myocardial infarction; R73.03 Prediabetes; I11.0 Hypertensive heart disease with heart failure; I50.42 Chronic combined systolic (congestive) and diastolic (congestive) heart failure; J44.9 Chronic obstructive pulmonary disease, unspecified; G47.30 Sleep apnea, unspecified; E78.5 Hyperlipidemia, unspecified; M19.90 Unspecified osteoarthritis, unspecified site; R60.0 Localized edema; I70.229 Atherosclerosis of native arteries of extremities with rest pain, unspecified extremity; L97.521 Non-pressure chronic ulcer of other part of left foot limited to breakdown of skin
CPT/HCPCS: 36415; 80048; 85007; 85027; 85610; A6213; A9270

== ENCOUNTER 2025-09-06 11:06 | Day surgery (SDC) | payer MEDICARE, BC ==
[~2025-09-06] VITALS: Ht 193 cm; Wt 86.2 kg
[2025-09-06] VITALS (10 sets, daily range): BP systolic 105–126; BP diastolic 56–87
[2025-09-06] MEDS ORDERED: FINA5 PO (11:47)
[2025-09-06] MEDS ORDERED: ALBU90OI INH (11:47)
[2025-09-06] MEDS ORDERED: SYMBICORT 16010.2 GM (11:47)
[2025-09-06] MEDS ORDERED: KLOR-CON 1010 ME9 PO (11:48)
[2025-09-06] MEDS ORDERED: LEVFLO500 PO (11:48)
[2025-09-06] MEDS ORDERED: NITR.4SL SL (11:48)
[2025-09-06] MEDS ORDERED: NS 250 ML IV ONE (12:29)
[2025-09-06] MEDS ORDERED: NS 2,000 ML IV ONE (12:29)
[2025-09-06] MEDS ORDERED: Heparin Sodium 1000 Units/ML 10ML MDV ONE ×2 (12:29→12:35)
[2025-09-06] MEDS ORDERED: Midazolam HCl 1MG / ML 2ML Vial ONE (12:47)
[2025-09-06] MEDS ORDERED: FentaNYL Citrate 50 MCG/ML 2 ML Injection ONE (12:48)
--- NOTE | 2025-09-06 14:45 | NUR ---
PT BACK FROM PROCEDURE. R GROIN SITE STABLE. DOPPLER PULSES FOUND L DP/PT AND R DP. PT OFFERS NO C/O'S.
[2025-09-06] MEDS ORDERED: XARELTO2.5 M1 PO (14:47)
--- NOTE | 2025-09-06 16:01 | NUR ---
R GROIN SITE REMAINS STABLE. PT SITTING UP EATING AT THIS TIME.
--- NOTE | 2025-09-06 16:15 | NUR ---
R GROIN SITE REMAINS STABLE. DISCHARGE INSTRUCTIONS REVIEWED WITH PT AND . NO FURTHER QUESTIONS. IN AGREEMENT WITH PLAN OF CARE
--- NOTE | 2025-09-06 16:22 | NUR ---
PT UP TO BATHROOM WITH CANE AND SBA, R GROIN SITE REMAINS STABLE.
--- NOTE | 2025-09-06 16:26 | NUR ---
PT GETTING DRESSED, SALINE LOCK REMOVED WITH CATHETER INTACT AND PRESSURE DRESSING APPLIED.
--- NOTE | 2025-09-06 16:38 | NUR ---
PT TO PRIVATE VEHICLE PER W/C WITH ONE STAFF IN CARE OF .
== END 2025-09-06 16:35 | disposition home or self-care (01) ==
LOC: MHTC 11:06
DX: I70.245 Atherosclerosis of native arteries of left leg with ulceration of other part of foot (principal); L97.521 Non-pressure chronic ulcer of other part of left foot limited to breakdown of skin; I70.233 Atherosclerosis of native arteries of right leg with ulceration of ankle; L97.319 Non-pressure chronic ulcer of right ankle with unspecified severity; R60.0 Localized edema; M48.062 Spinal stenosis, lumbar region with neurogenic claudication; I25.10 Atherosclerotic heart disease of native coronary artery without angina pectoris; I13.0 Hypertensive heart and chronic kidney disease with heart failure and stage 1 through stage 4 chronic kidney disease, or unspecified chronic kidney disease; N18.9 Chronic kidney disease, unspecified; I50.9 Heart failure, unspecified; J44.9 Chronic obstructive pulmonary disease, unspecified; E78.5 Hyperlipidemia, unspecified; K21.9 Gastro-esophageal reflux disease without esophagitis; I25.5 Ischemic cardiomyopathy; I25.2 Old myocardial infarction; I47.29 Other ventricular tachycardia; I27.20 Pulmonary hypertension, unspecified; G47.30 Sleep apnea, unspecified; M51.16 Intervertebral disc disorders with radiculopathy, lumbar region; Z87.891 Personal history of nicotine dependence; Z79.02 Long term (current) use of antithrombotics/antiplatelets; Z79.84 Long term (current) use of oral hypoglycemic drugs; Z79.899 Other long term (current) drug therapy; Z88.2 Allergy status to sulfonamides; Z88.8 Allergy status to other drugs, medicaments and biological substances; Z95.1 Presence of aortocoronary bypass graft; Z96.651 Presence of right artificial knee joint
CPT/HCPCS: 37227; 37228; 37232; 75625; 75716; 75774; 76937; 99152; 99153; C1714; C1725; C1760; C1769; C1874; C1887; C1894; J1644; J2250; J3010; J7030; J7050; Q9967

== ENCOUNTER 2025-09-25 10:00 | Day surgery (SDC) | payer MEDICARE, BC ==
[~2025-09-25 10:00] MED LIST changes: +ALBU90OI INH; +FINA5 PO; +KLOR-CON 1010 ME9 PO; +LEVFLO500 PO; +Lidocaine HCl 4% Cream 5 GM ONE; +SYMBICORT 16010.2 GM; +XARELTO2.5 M1 PO
== END 2025-09-25 23:00 | disposition home or self-care (01) ==
LOC: WOUND 10:00
DX: L89.893 Pressure ulcer of other site, stage 3 (principal); L89.892 Pressure ulcer of other site, stage 2; L97.312 Non-pressure chronic ulcer of right ankle with fat layer exposed; I73.9 Peripheral vascular disease, unspecified; I11.0 Hypertensive heart disease with heart failure; J44.9 Chronic obstructive pulmonary disease, unspecified; I25.10 Atherosclerotic heart disease of native coronary artery without angina pectoris; I50.42 Chronic combined systolic (congestive) and diastolic (congestive) heart failure
CPT/HCPCS: A6196; A6213; A9270; G0463